=== PATIENT | male | born 2000 | race Caucasian/White ===

== ENCOUNTER 2019-03-02 00:23 | Observation (INO) | payer OTHER ==
[2019-03-02] VITALS (7 sets, daily range): BP systolic 99–122; BP diastolic 51–74
[~2019-03-02] VITALS: Ht 177.8 cm; Wt 67.1 kg
--- NOTE | ~2019-03-02 | CON ---
[address] [address] CONSULTATION Name: REY HURTADO Room: [address] IN M.R.#: [id number] Admission: 03/02/19 Attend Phys: Joe Bee MD Discharge: Date of : 99 Report #: [id number] THIS REPORT FOR: //name// CC: CONRADO physician/PCP Joe Bee DATE OF SERVICE: 03/02/2019 HISTORY OF PRESENT ILLNESS: This is a 18-year-old male patient who is not able to provide any reliable history. He is pretty apathetic. He talks very softly. I reviewed the records in the computer. Apparently, the patient was admitted with altered mental status and some inability to ambulate. He had some seizure-like activity. He apparently had a few spells like this before. He is unable to provide any more history in that regard. He indicates he is very nervous. There is some question that this patient was exposed to heat yesterday. There is apparently no air conditioner in the place he lives and he was outside for most of the day. He thinks he feels better now. REVIEW OF SYSTEMS: Difficult both from the records as well as the patient. Apparently, he has a history of substance abuse. He does not believe he is ____. In fact, he was hypotensive here. He does have some trouble with anxiety. A 14-point review of system was carried out and this was his relevant 14-point review of system. PAST MEDICAL HISTORY: Positive for similar spell, but further history is not very clear. FAMILY HISTORY: Negative for any early age stroke. SOCIAL HISTORY: He says he does not drink alcohol. He smokes marijuana and has a history of substance abuse. PHYSICAL EXAMINATION: Indicates he is alert. He is responsive. He thinks it is January. He talks very softly. He feels better than yesterday. He is partly oriented. His memory is somewhat diminished, but effort is also poor, so is fund of information. Cranial nerve examination 2-12 looks mostly unremarkable. He moves all four extremities. His position sense is intact. His reflexes are diminished on both sides. His tone looks unremarkable. Cardiac examination is unremarkable. No respiratory difficulty or rhonchi was noticed. There is no edema. His pulses are palpable. His blood pressure is 99/74, respiration is 14, pulse is 50, and temperature is 98.7. He did have a CT scan of the head on admission, which was reviewed and it was unremarkable. IMPRESSION: Difficult to form in this patient. Part of the process may be heat-related, but the patient had similar episodes in the past and because of that, further workup is indicated. I discussed that with [place] [address] CONSULTATION Name: REY HURTADO Room: [address] IN [facility]#: [id number] Admission: 03/02/19 Attend Phys: Joe Bee MD Discharge: Date of : 89 Report #: [id number] contraindication for doing an MRI, so we will proceed with MRI and an EEG. His B12 was somewhat on the lower side and I think that should be replaced. His calcium is also somewhat low. Most importantly, this patient needs to live a healthy lifestyle. He needs to stop any substance abuse and that was discussed with him. We will go ahead and arrange this workup and follow up with you. Thank you very much for this referral. By: [id number] Corrales MD /uzma
--- NOTE | ~2019-03-02 | EEG ---
[address] [address] EEG STUDY REPORT Name: REY HURTADO Patrick Room: [address] IN .#: [id number] Admission: 03/02/19 Attend Phys: Joe Bee MD Discharge: Date of : 99 Report #: [id number] THIS REPORT FOR: //name// CC: FAM physician/PCP Joe Bee DATE OF SERVICE: 03/02/2019 This patient is being evaluated for altered mental status with a question of seizure. EEG was done by placing the electrodes by standard 10-20 system of electrode placement. Both referential and sequential montages were used for recording. The background activity in this patient's EEG is about 9 Hz and 30 microvolts. It is a symmetrical activity. The patient went to sleep and that is associated with bilateral slowing and vertex sharp waves. Throughout the record, no active epileptiform activity was noticed. IMPRESSION: This patient's EEG is unremarkable. Thank you very much for this referral. By: [id number] Corrales MD /nt
[~2019-03-02 00:23] MED LIST: MELATONIN5 M1; STRATTERA10 MG
[2019-03-02 00:44] LABS: ABSOLUTE BASOPHILS 0.1 thou/uL (0.0-0.2); ABSOLUTE EOSINOPHILS 0.1 thou/uL (0.0-0.7); ABSOLUTE LYMPHOCYTES 3.5 thou/uL (0.8-5.3); ABSOLUTE MONOCYTES 0.8 thou/uL (0.0-1.2); ABSOLUTE NEUTROPHILS 4.3 thou/uL (1.6-8.1); EOSINOPHILS 1.2 %; HEMATOCRIT 38.9 % (42.0-52.0); HEMOGLOBIN 13.4 gm/dL (14.0-18.0); LYMPHOCYTES 39.6 %; MCH 30.2 pg (26.0-34.0); MCHC 34.4 g/dL (28.0-37.0); MCV 87.6 fL (80.0-100.0); MONOCYTES 9.4 %; MPV 6.7 fl. (7.2-11.1); NUCLEATED RBCS 0 /100WBC; PLATELET COUNT* 330 thou/uL (150-400); POLYS 48.8 %; RBC 4.44 mil/uL (4.50-6.00); RDW-CV 13.8 % (10.5-14.5); WBC 8.8 thou/uL (4.0-11.0)
[2019-03-02 00:52] LABS: ANION GAP 10 mmol/L (7-16); BUN 15 mg/dL (7-18); CALCIUM 8.2 mg/dL (8.5-10.1); CHLORIDE 107 mmol/L (98-107); CO2 27 mmol/L (21-32); CREATININE 1.1 mg/dL (0.6-1.3); GLUCOSE 118 mg/dL (70-99); POTASSIUM 3.5 mmol/L (3.5-5.1); SODIUM 144 mmol/L (136-145)
[2019-03-02 00:57] LABS: URINE BILIRUBIN NEGATIVE (Negative); URINE BLOOD NEGATIVE (Negative); URINE CLARITY CLEAR; URINE COLOR YELLOW; URINE GLUCOSE-RANDOM NEGATIVE (Negative); URINE KETONES NEGATIVE (Negative); URINE LEUKOCYTES-REFLEX NEGATIVE (Negative); URINE NITRITE-REFLEX NEGATIVE (Negative); URINE PROTEIN TRACE (Negative); URINE SPECIFIC GRAVITY >= 1.030 (1.005-1.030); URINE UROBILINOGEN 0.2 E.U./dl (0.2-1.0)
[2019-03-02 01:00] LABS: ACETAMINOPHEN < 2 ug/mL (10-30); ALCOHOL < 10 mg/dL (<10); SALICYLATE 2.7 mg/dL (2.8-20.0)
[2019-03-02 01:03] LABS: ALBUMIN 3.3 g/dL (3.4-5.0); ALKALINE PHOSPHATASE 72 U/L (46-116); LIPASE 178 U/L (73-393); NT-PRO BRAIN NAT PEPTIDE 14 pg/mL (<300); SGOT 9 U/L (15-37); SGPT 15 U/L (30-65); TOTAL BILIRUBIN 0.4 mg/dL (<0.1-1.0); TOTAL PROTEIN 5.8 g/dL (6.4-8.2); TROPONIN-I LEVEL <0.06 ng/mL (<0.06)
[2019-03-02 01:03] LABS: AMP/METHAMP POSITIVE (Negative); BARBITURATES Negative (Negative); BENZODIAZEPINES POSITIVE (Negative); COCAINE Negative (Negative); METHADONE Negative (Negative); OPIATES Negative (Negative); PCP Negative (Negative); THC POSITIVE (Negative)
--- NOTE | 2019-03-02 14:50 | EKG ---
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 : 2000 Requested By: Alex Cr Order Number: [id number] MD: Hank Simon Measurements Intervals [place] Rate: 57 P: -12 NM: 157 QRS: 55 QRSD: 113 T: 50 QT: 405 QTc: 395 Interpretive Statements Sinus rhythm Borderline intraventricular conduction delay RSR' in V1 or V2, probably normal variant No previous ECG available for comparison Electronically Signed On 03-02-2019 14:50:30 CDT by Hank Simon [email or web address] <ELECTRONICALLY SIGNED> By: Hank Simon MD, [facility] 03/02/19 1450 0032 Hank Simon MD, FAC /EPI
[2019-03-03] VITALS: BP 105/63
[2019-03-03 04:00] VITALS: BP 117/53
[2019-03-03 06:05] LABS: HIV-1/HIV-2 ANTIBODY Non Reactive (Non Reactive)
[2019-03-03 06:09] LABS: CALCIUM 8.7 mg/dL (8.5-10.1); CREATININE 0.9 mg/dL (0.6-1.3); MAGNESIUM 2.2 mg/dL (1.8-2.4); POTASSIUM 4.2 mmol/L (3.5-5.1)
[2019-03-03 08:00] VITALS: BP 102/57
[2019-03-03] MEDS ORDERED: VITAMIN B-12500 MCG PO (10:09)
[2019-03-03] MEDS ORDERED: REMERON15 MG PO (10:09)
[2019-03-03 12:00] VITALS: BP 102/57
== END 2019-03-03 13:20 | disposition home or self-care (01) ==
LOC: M.ERS 00:23 → M.2W 01:28 → M.TBA-ER 01:28 → M.2W 01:28
PROVIDERS: Emergency Medicine; ADMIT Internal Medicine
DX: G92 Toxic encephalopathy (principal); R40.4 Transient alteration of awareness; F15.10 Other stimulant abuse, uncomplicated; F12.10 Cannabis abuse, uncomplicated; F13.10 Sedative, hypnotic or anxiolytic abuse, uncomplicated; F17.200 Nicotine dependence, unspecified, uncomplicated; E53.8 Deficiency of other specified B group vitamins; F32.9 Major depressive disorder, single episode, unspecified; E44.1 Mild protein-calorie malnutrition; R53.1 Weakness

== ENCOUNTER 2019-10-18 16:46 | Inpatient (IN) | payer OTHER ==
[~2019-10-18] VITALS: Ht 177.8 cm; Wt 68.0 kg
[~2019-10-18 16:46] MED LIST changes: +REMERON15 MG PO; +VITAMIN B-12500 MCG PO
[2019-10-18 17:01] VITALS: BP 133/78
[2019-10-18 17:59] LABS: HEMATOCRIT 41.9 % (42.0-52.0); HEMOGLOBIN 14.6 gm/dL (14.0-18.0); MCH 30.5 pg (26.0-34.0); MCHC 34.8 g/dL (28.0-37.0); MCV 87.7 fL (80.0-100.0); MPV 6.5 fl. (7.2-11.1); NUCLEATED RBCS 0 /100WBC; PLATELET COUNT* 301 thou/uL (150-400); RBC 4.78 mil/uL (4.50-6.00); RDW-CV 13.7 % (10.5-14.5); WBC 24.6 thou/uL (4.0-11.0)
[2019-10-18 18:10] LABS: APTT 37.3 Seconds (25.0-31.3); INR 1.1; PROTIME 11.7 Seconds (9.20-11.50)
[2019-10-18 18:13] LABS: CALCIUM 8.2 mg/dL (8.5-10.1); CREATININE 1.2 mg/dL (0.6-1.3)
[2019-10-18 18:19] LABS: TOTAL BILIRUBIN 0.8 mg/dL (<0.1-1.0); TOTAL PROTEIN 6.9 g/dL (6.4-8.2)
[2019-10-18 18:24] LABS: INFLUENZA A ANTIGEN Negative (Negative); INFLUENZA B ANTIGEN Negative (Negative)
[2019-10-18 18:40] LABS: ABSOLUTE LYMPHOCYTES 1.5 thou/uL (0.8-5.3); ABSOLUTE NEUTROPHILS 22.1 thou/uL (1.6-8.1)
[2019-10-18 18:41] LABS: PLATELET ESTIMATE ADEQUATE
[2019-10-18 18:48] LABS: URINE BILIRUBIN NEGATIVE (Negative); URINE BLOOD NEGATIVE (Negative); URINE CLARITY CLEAR; URINE COLOR YELLOW; URINE GLUCOSE-RANDOM NEGATIVE (Negative); URINE KETONES NEGATIVE (Negative); URINE LEUKOCYTES-REFLEX NEGATIVE (Negative); URINE NITRITE-REFLEX NEGATIVE (Negative); URINE PROTEIN 1+ (Negative); URINE SPECIFIC GRAVITY 1.025 (1.005-1.030)
--- NOTE | 2019-10-18 18:54 | NUR ---
DELONTE BUSTAMANTE [phone]
[2019-10-18 19:02] LABS: AMP/METHAMP POSITIVE (Negative); BARBITURATES Negative (Negative); BENZODIAZEPINES Negative (Negative); COCAINE Negative (Negative); METHADONE Negative (Negative); OPIATES Negative (Negative); PCP Negative (Negative); THC POSITIVE (Negative)
[2019-10-18 21:35] VITALS: BP 111/67
[2019-10-18 22:00] VITALS: BP 118/56
[2019-10-19] VITALS: BP 102/55
[2019-10-19 04:00] VITALS: BP 105/49
--- NOTE | 2019-10-19 06:04 | NUR ---
RECEIVED REPORT FROM ED RN. PT TRANSFERRED TO 213. PT A&OX4. HEAVY MOBILE EQUIPMENT OPERATOR IN PLACE. VSS. ADMISSION HISTORY & PHYSICAL ASSESSMENT COMPLETED AND CHARTED. ORIENTED TO ROOM & CALL LIGHT. PT ON RA. PT TRACING SR/ST ON TELE. PT UPSTANDBY TO RESTROOM. PT COMLPAINED OF RIGHT RIB PAIN-MED GIVEN PER OCT. PT ABLE TO SLEEP WELL ON BED. FALL PRECATION IN PLACE. CALL LIGHT WITHIN REACH.
[2019-10-19 07:00] VITALS: BP 95/47
[2019-10-19 09:29] LABS: HEMATOCRIT 37.4 % (42.0-52.0); MCH 29.8 pg (26.0-34.0); MCHC 33.6 g/dL (28.0-37.0); MCV 88.7 fL (80.0-100.0); MPV 6.9 fl. (7.2-11.1); RBC 4.22 mil/uL (4.50-6.00); RDW-CV 13.8 % (10.5-14.5); WBC 17.3 thou/uL (4.0-11.0)
[2019-10-19 09:31] LABS: HEMOGLOBIN 12.6 gm/dL (14.0-18.0)
--- NOTE | 2019-10-19 09:45 | NUR ---
INITAL ASSESSMENT COMPLETED CHARTED. VSS. TRACING SR ON MONITOR. PT DENIES PAIN, N/V/D, SOA. NO NEW CONCERNS AT THIS TIME. HOURLY ROUNDING IN PLACE FOR PT SAFETY. CLWR.
[2019-10-19 09:56] LABS: ALBUMIN 2.5 g/dL (3.4-5.0); CREATININE 1.2 mg/dL (0.6-1.3); POTASSIUM 4.1 mmol/L (3.5-5.1); TOTAL BILIRUBIN 0.4 mg/dL (<0.1-1.0); TOTAL PROTEIN 5.3 g/dL (6.4-8.2)
[2019-10-19 12:00] VITALS: BP 112/53
--- NOTE | 2019-10-19 14:52 | NUR ---
I AGREE WITH MORNING ASSESSMENT. FALL RISK PRECAUTIONS IN PLACE. WILL CONTINUE TO MONITOR.
--- NOTE | 2019-10-19 16:46 | EKG ---
[place] [address] ELECTROCARDIOGRAM REPORT Name: REY HURTADO Room: [address] ADM IN .R.#: [id number] Admission: 10/18/19 Attend Phys: Jean Carlos Palacio Discharge: Date of : 89 Date of Service: 10/18/19 1658 Report #: [id number] THIS REPORT FOR: //name// [facility] ED Test Date: 2019-10-18 Test Time: 16:58:14 Pat Name: RYE HURTADO Department: Room: [facility] Gender: M Rn Obgyn: : 2000 Requested By: Basia Mcguire Order Number: [id number] MD: Efraín Naylor Measurements Intervals [place] Rate: 124 P: 45 [place]: 138 QRS: -16 QRSD: 95 T: 52 QT: 294 QTc: 423 Interpretive Statements Sinus tachycardia Borderline left axis deviation RSR' in V1 or V2, probably normal variant Baseline wander in lead(s) V1 Compared to ECG 03/02/2019 00:32:28 Sinus rate has increased Electronically Signed On 10-19-2019 16:45:28 HEAVY EQUIPMENT RENTAL MANAGER by Efraín Naylor [email or web address] <ELECTRONICALLY SIGNED> By: Efraín Naylor MD, FAC 10/19/19 1645 1658 1658 Efraín Naylor MD, [facility] /EPI
--- NOTE | 2019-10-19 16:59 | NUR ---
PT REMAINED ALERT AND ORIENTED. PT RESTING IN BED. FALL RISK PRECAUTIONS IN PLACE. HOURLY ROUNDING COMPLETED. WILL CONTINUE TO MONITOR.
[2019-10-19 21:30] VITALS: BP 112/52
--- NOTE | 2019-10-20 06:13 | NUR ---
VSS ON RA. NO C/O PAIN. IVF RUNNING ORDERED. MOM AT BEDSIDE. NO OTHER CONCERNS AT THIS TIME. WILL CONTINUE TO MONITOR.
[2019-10-20 07:35] VITALS: BP 118/63
[2019-10-20 11:05] VITALS: BP 118/63
[2019-10-20] MEDS ORDERED: ZITHROMAX250 MG PO (11:29)
[2019-10-20] MEDS ORDERED: CEFDINIR300 MG PO (11:30)
[2019-10-20 12:19] LABS: ABSOLUTE BASOPHILS 0.1 thou/uL (0.0-0.2); ABSOLUTE EOSINOPHILS 0.1 thou/uL (0.0-0.7); ABSOLUTE LYMPHOCYTES 2.2 thou/uL (0.8-5.3); ABSOLUTE MONOCYTES 0.8 thou/uL (0.0-1.2); ABSOLUTE NEUTROPHILS 7.6 thou/uL (1.6-8.1); BASOPHILS 0.6 %; EOSINOPHILS 1.3 %; HEMATOCRIT 35.6 % (42.0-52.0); HEMOGLOBIN 12.6 gm/dL (14.0-18.0); MCH 31.6 pg (26.0-34.0); MCHC 35.4 g/dL (28.0-37.0); MCV 89.2 fL (80.0-100.0); MONOCYTES 7.6 %; NUCLEATED RBCS 0 /100WBC; POLYS 70.5 %; RBC 3.99 mil/uL (4.50-6.00); WBC 10.8 thou/uL (4.0-11.0)
[2019-10-20 12:20] LABS: PLATELET COUNT* 324 thou/uL (150-400)
[2019-10-20 12:26] LABS: CALCIUM 8.1 mg/dL (8.5-10.1); POTASSIUM 3.3 mmol/L (3.5-5.1)
[2019-10-20 12:50] VITALS: BP 118/63
--- NOTE | 2019-10-20 12:51 | NUR ---
PT GIVEN DISCHARGE INFORMATION, CARE NOTES, AND PRESCRIPTIONS. IV REMOVED. PT BELONGINGS GATHERED. PT LEFT AMBULATORY WITH NURSING STAFF TO HOME. FALL RISK PRECAUTIONS IN PLACE. HOURLY ROUNDING COMPLETED.
== END 2019-10-20 12:56 | disposition home or self-care (01) | DRG 193 ==
LOC: M.ERS 16:46 → M.TBA-ER 19:41 → M.2W 19:41 → M.ORTHSURG 10-19 14:25
PROVIDERS: Internal Medicine; Nurse Practitioner Family; ADMIT Internal Medicine
DX: J18.9 Pneumonia, unspecified organism (principal); R65.11 Systemic inflammatory response syndrome (SIRS) of non-infectious origin with acute organ dysfunction; E86.0 Dehydration; F19.10 Other psychoactive substance abuse, uncomplicated; F12.10 Cannabis abuse, uncomplicated; F32.9 Major depressive disorder, single episode, unspecified; Z28.21 Immunization not carried out because of patient refusal; Z87.891 Personal history of nicotine dependence; Z79.899 Other long term (current) drug therapy

== ENCOUNTER 2019-11-11 11:59 | Emergency (ER) | payer OTHER ==
[~2019-11-11] VITALS: Ht 177.8 cm; Wt 65.8 kg
[~2019-11-11 11:59] MED LIST changes: +CEFDINIR300 MG PO; +ZITHROMAX250 MG PO
[2019-11-11 12:38] LABS: URINE BILIRUBIN NEGATIVE (Negative); URINE BLOOD TRACE (Negative); URINE CLARITY CLEAR; URINE COLOR YELLOW; URINE GLUCOSE-RANDOM NEGATIVE (Negative); URINE KETONES NEGATIVE (Negative); URINE LEUKOCYTES-REFLEX NEGATIVE (Negative); URINE NITRITE-REFLEX NEGATIVE (Negative); URINE PROTEIN NEGATIVE (Negative); URINE SPECIFIC GRAVITY >= 1.030 (1.005-1.030); URINE UROBILINOGEN 0.2 E.U./dl (0.2-1.0)
[2019-11-11 12:43] LABS: ABSOLUTE BASOPHILS 0.1 thou/uL (0.0-0.2); ABSOLUTE EOSINOPHILS 0.1 thou/uL (0.0-0.7); ABSOLUTE LYMPHOCYTES 2.4 thou/uL (0.8-5.3); ABSOLUTE MONOCYTES 0.5 thou/uL (0.0-1.2); ABSOLUTE NEUTROPHILS 3.8 thou/uL (1.6-8.1); BASOPHILS 0.9 %; EOSINOPHILS 1.4 %; HEMATOCRIT 40.6 % (42.0-52.0); LYMPHOCYTES 35.1 %; MCHC 34.6 g/dL (28.0-37.0); MCV 86.8 fL (80.0-100.0); MONOCYTES 7.3 %; MPV 6.8 fl. (7.2-11.1); NUCLEATED RBCS 0 /100WBC; PLATELET COUNT* 360 thou/uL (150-400); POLYS 55.3 %; RBC 4.68 mil/uL (4.50-6.00); RDW-CV 14.2 % (10.5-14.5); WBC 6.8 thou/uL (4.0-11.0)
[2019-11-11 12:45] LABS: AMP/METHAMP POSITIVE (Negative); BARBITURATES Negative (Negative); BENZODIAZEPINES Negative (Negative); COCAINE Negative (Negative); METHADONE Negative (Negative); OPIATES Negative (Negative); PCP Negative (Negative); THC Negative (Negative)
[2019-11-11 12:50] LABS: CALCIUM 8.8 mg/dL (8.5-10.1); CREATININE 1.1 mg/dL (0.6-1.3); POTASSIUM 3.8 mmol/L (3.5-5.1)
[2019-11-11 12:55] LABS: ALBUMIN 3.7 g/dL (3.4-5.0); TOTAL BILIRUBIN 0.3 mg/dL (<0.1-1.0)
[2019-11-11 13:20] VITALS: BP 132/82
== END 2019-11-11 13:20 | disposition home or self-care (01) ==
LOC: M.ERS 11:59
PROVIDERS: Family Medicine
DX: R56.9 Unspecified convulsions (principal); F15.10 Other stimulant abuse, uncomplicated; F17.210 Nicotine dependence, cigarettes, uncomplicated; Z79.899 Other long term (current) drug therapy

== ENCOUNTER 2020-03-26 08:48 | Emergency (ER) | payer OTHER ==
[~2020-03-26] VITALS: Ht 175.3 cm; Wt 67.1 kg
[2020-03-26 09:19] LABS: ABSOLUTE BASOPHILS 0.1 thou/uL (0.0-0.2); ABSOLUTE EOSINOPHILS 0.1 thou/uL (0.0-0.7); ABSOLUTE LYMPHOCYTES 3.3 thou/uL (0.8-5.3); ABSOLUTE MONOCYTES 0.8 thou/uL (0.0-1.2); ABSOLUTE NEUTROPHILS 4.6 thou/uL (1.6-8.1); BASOPHILS 1.1 %; EOSINOPHILS 0.8 %; LYMPHOCYTES 37.6 %; MCH 30.8 pg (26.0-34.0); MCHC 34.9 g/dL (28.0-37.0); MCV 88.3 fL (80.0-100.0); MONOCYTES 8.7 %; MPV 6.5 fl. (7.2-11.1); NUCLEATED RBCS 0 /100WBC; PLATELET COUNT* 355 thou/uL (150-400); POLYS 51.8 %; RBC 4.87 mil/uL (4.50-6.00); RDW-CV 13.7 % (10.5-14.5); WBC 8.8 thou/uL (4.0-11.0)
[2020-03-26 09:27] LABS: CALCIUM 8.4 mg/dL (8.5-10.1); CREATININE 1.3 mg/dL (0.6-1.3); POTASSIUM 3.6 mmol/L (3.5-5.1)
[2020-03-26 09:29] LABS: ALCOHOL < 10 mg/dL (<10)
[2020-03-26 09:30] LABS: APTT 27.3 Seconds (25.0-31.3); INR 1.1
[2020-03-26 09:35] LABS: ACETAMINOPHEN < 2 ug/mL (10-30)
[2020-03-26 09:38] LABS: ALBUMIN 3.9 g/dL (3.4-5.0); TOTAL BILIRUBIN 0.3 mg/dL (<0.1-1.0); TOTAL PROTEIN 6.8 g/dL (6.4-8.2)
[2020-03-26 10:09] LABS: URINE BILIRUBIN NEGATIVE (Negative); URINE BLOOD 1+ (Negative); URINE CLARITY CLEAR; URINE COLOR YELLOW; URINE GLUCOSE-RANDOM NEGATIVE (Negative); URINE KETONES NEGATIVE (Negative); URINE LEUKOCYTES-REFLEX NEGATIVE (Negative); URINE NITRITE-REFLEX NEGATIVE (Negative); URINE PROTEIN NEGATIVE (Negative); URINE SPECIFIC GRAVITY >= 1.030 (1.005-1.030); URINE UROBILINOGEN 0.2 E.U./dl (0.2-1.0)
[2020-03-26 10:15] LABS: SQUAMOUS NONE SEEN /LPF (0-3)
[2020-03-26 10:16] LABS: URINE RBC 3-10 Few /HPF (0-2); URINE WBC-REFLEX 0-5 Rare /HPF (0-5)
[2020-03-26 10:17] LABS: AMP/METHAMP POSITIVE (Negative); BARBITURATES Negative (Negative); BENZODIAZEPINES Negative (Negative); COCAINE Negative (Negative); METHADONE Negative (Negative); OPIATES Negative (Negative); PCP Negative (Negative); THC POSITIVE (Negative)
[2020-03-26 10:21] LABS: BACTERIA-REFLEX 1-9 Few /HPF (None Seen); CASTS None Seen /LPF (None Seen); CRYSTALS None Seen /LPF (None Seen); MUCUS >6 Heavy strn/LPF (None Seen)
[2020-03-26 20:32] VITALS: BP 100/52
--- NOTE | 2020-03-28 11:03 | EKG ---
[place] [address] ELECTROCARDIOGRAM REPORT Name: REY HURTADO Room: [facility]#: [id number] Admission: 03/26/20 Attend Phys: Discharge: 03/26/20 Date of : 89 Date of Service: 03/26/20 0856 Report #: [id number] THIS REPORT FOR: //name// [facility] ED Test Date: 2020-03-26 Test Time: 08:56:16 Pat Name: REY HURTADO Department: Room: Gender: Senior Sql Developer: TDS : 2000 Requested By: Eduardo Wray Order Number: [id number] MD: Efraín Naylor Measurements Intervals [place] Rate: 65 P: 51 [place]: 186 QRS: 46 QRSD: 101 T: 56 QT: 375 QTc: 390 Interpretive Statements Sinus rhythm Consider left atrial enlargement RSR' in V1 or V2, probably normal variant Baseline wander in lead(s) V2 Compared to ECG 10/18/2019 16:58:14 Sinus tachycardia no longer present Electronically Signed On 03-28-2020 11:03:20 CDT by Efraín Naylor [email or web address] <ELECTRONICALLY SIGNED> By: Efraín Naylor MD, [facility] 03/28/20 1103 0856 0856 Efraín Naylor MD, [facility] /EPI
== END 2020-03-26 20:32 | disposition home or self-care (01) ==
LOC: M.ERS 08:48
PROVIDERS: Emergency Medicine Emergency Medical Services
DX: F19.10 Other psychoactive substance abuse, uncomplicated (principal); F17.210 Nicotine dependence, cigarettes, uncomplicated; Z79.899 Other long term (current) drug therapy

== ENCOUNTER 2020-10-31 17:57 | Emergency (ER) | payer OTHER ==
[~2020-10-31] VITALS: Ht 177.8 cm; Wt 72.6 kg
[2020-10-31 18:22] LABS: ABSOLUTE BASOPHILS 0.1 thou/uL (0.0-0.2); ABSOLUTE EOSINOPHILS 0.1 thou/uL (0.0-0.7); ABSOLUTE LYMPHOCYTES 2.5 thou/uL (0.8-5.3); ABSOLUTE MONOCYTES 0.6 thou/uL (0.0-1.2); ABSOLUTE NEUTROPHILS 5.6 thou/uL (1.6-8.1); BASOPHILS 1.5 %; EOSINOPHILS 1.2 %; HEMATOCRIT 46.5 % (42.0-52.0); HEMOGLOBIN 15.6 gm/dL (14.0-18.0); LYMPHOCYTES 27.6 %; MCH 29.6 pg (26.0-34.0); MCHC 33.6 g/dL (28.0-37.0); MCV 88.2 fL (80.0-100.0); MONOCYTES 7.1 %; MPV 6.2 fl. (7.2-11.1); NUCLEATED RBCS 0 /100WBC; PLATELET COUNT* 352 thou/uL (150-400); POLYS 62.6 %; RBC 5.28 mil/uL (4.50-6.00); WBC 8.9 thou/uL (4.0-11.0)
[2020-10-31 18:49] LABS: POTASSIUM 4.2 mmol/L (3.5-5.1)
[2020-10-31 19:06] LABS: ALBUMIN 3.6 g/dL (3.4-5.0); CALCIUM 9.3 mg/dL (8.5-10.1); CREATININE 1.3 mg/dL (0.6-1.3); TOTAL BILIRUBIN 0.4 mg/dL (<0.1-1.0); TOTAL PROTEIN 6.6 g/dL (6.4-8.2)
[2020-10-31 20:34] LABS: AMP/METHAMP POSITIVE (Negative); BARBITURATES Negative (Negative); BENZODIAZEPINES Negative (Negative); COCAINE Negative (Negative); METHADONE Negative (Negative); OPIATES Negative (Negative); PCP Negative (Negative); THC POSITIVE (Negative)
[2020-10-31 23:42] VITALS: BP 103/62
== END 2020-10-31 23:43 | disposition home or self-care (01) ==
LOC: M.ERS 17:57
PROVIDERS: Emergency Medicine
DX: F19.10 Other psychoactive substance abuse, uncomplicated (principal); F10.129 Alcohol abuse with intoxication, unspecified; Y90.0 Blood alcohol level of less than 20 mg/100 ml; F17.210 Nicotine dependence, cigarettes, uncomplicated

== ENCOUNTER 2021-01-14 14:01 | Emergency (ER) | payer OTHER ==
[~2021-01-14] VITALS: Ht 177.8 cm; Wt 67.1 kg
[2021-01-14 14:25] VITALS: BP 133/88
--- NOTE | 2021-01-16 10:18 | EKG ---
[place] [address] ELECTROCARDIOGRAM REPORT Name: REY HURTADO Room: [facility]#: [id number] Admission: 01/14/21 Attend Phys: Discharge: 01/14/21 Date of : 89 Date of Service: 01/14/21 1406 Report #: [id number] THIS REPORT FOR: //name// [facility] ED Test Date: 2021-01-14 Test Time: 14:06:15 Pat Name: REY HURTADO Department: Room: Gender: Lean Specialist: : 2000 Requested By: Magdiel Murillo Order Number: [id number] MD: Blue Isidro Measurements Intervals [place] Rate: 66 P: 49 CT: 157 QRS: 14 QRSD: 97 T: 48 QT: 361 QTc: 379 Interpretive Statements Sinus rhythm Baseline wander in lead(s) V2 Compared to ECG 03/26/2020 08:56:16 No significant changes Electronically Signed On 01-16-2021 10:18:18 CDT by Blue Isidro [email or web address] <ELECTRONICALLY SIGNED> By: Blue Isidro MD, [facility] 01/16/21 1018 1406 1406 Blue Isidro MD, [facility] /EPI
== END 2021-01-14 14:27 | disposition home or self-care (01) ==
LOC: M.ERS 14:01
DX: F19.10 Other psychoactive substance abuse, uncomplicated (principal); F41.9 Anxiety disorder, unspecified; F17.210 Nicotine dependence, cigarettes, uncomplicated

== ENCOUNTER 2021-10-05 19:59 | Emergency (ER) | payer OTHER ==
[~2021-10-05] VITALS: Ht 172.7 cm; Wt 72.6 kg
[2021-10-05] MEDS ORDERED: KEPPRA 500 MG500 MG PO (20:26)
[2021-10-06] MEDS ORDERED: LEVOFLOXACIN500 MG PO (00:29)
[2021-10-06 00:41] VITALS: BP 122/68
== END 2021-10-06 00:41 | disposition home or self-care (01) ==
LOC: M.ERS 19:59
DX: S00.01XA Abrasion of scalp, initial encounter (principal); R56.9 Unspecified convulsions; F19.10 Other psychoactive substance abuse, uncomplicated; F17.210 Nicotine dependence, cigarettes, uncomplicated; Z79.899 Other long term (current) drug therapy; W18.30XA Fall on same level, unspecified, initial encounter; Y93.89 Activity, other specified; Y92.89 Other specified places as the place of occurrence of the external cause; Y99.8 Other external cause status